=== PATIENT | female | born 1975 | race Caucasian/White ===

== ENCOUNTER 2024-04-20 13:56 | Outpatient (AMB) | payer OTHER, SELFPAY ==
--- NOTE | 2024-04-20 11:24 | A.OFFPC_ITS ---
Intake Visit Reasons: npv, uti Intake Note: New patient visit. UTI sxs Allergies codeine Allergy (Unknown, Verified 04/20/24 16:25) chest tightness metoclopramide [From Reglan] Allergy (Unknown, Verified 04/20/24 16:25) psychotic reaction morphine Allergy (Unknown, Verified 04/20/24 16:25) profuse vomiting Medication List - Last Reconciled 04/20/24 by Carole Castillo PA-C Tobacco use date assessed: 04/20/24 Dental Screening Dental Screen Date: 04/20/24 Did you have a dental visit in the last 12 months?: Yes Did you have a dental problem in the last 6 months where you did not have access to dental care?: No Was dental information given to patient?: Patient has dentist HPI npv, uti HPI Details Patient is a 48-year-old female who presents today to [facility]. She is transferring from [facility]. She tells me today that she would like her hormones tested because she thinks that she is menopausal. She states that she would not know because in her 20s she had a hysterectomy. She states that she has had an increase in anxiety, feeling like she has a hard time with her weight, she reports that all of her joints and muscles are just achy on and off. She is not sleeping well at night and also attributes this to being menopausal. She wonders if his because of her anxiety. She does not want to go on any medications. She has had some increase in life stressors recently but feels like they are under control so she does not know why she is having all this stress. She states that she wants everything checked and that she would consider seeing functional medicine for her hormones. She is leaving to [place] in a few days and requests a prescription for lorazepam. She gets 1 prescription for 30 tablets a year to use as needed. 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 1. Little interest or pleasure in doing things: not at all 2. Feeling down, depressed, or hopeless: not at all 3. Trouble falling or staying asleep, or sleeping too much: nearly every day 4. Feeling tired or having little energy: nearly every day 5. Poor appetite or overeating: nearly every day 6. Feeling bad about yourself - or that you are a failure or have let yourself or your family down: not at all 7. Trouble concentrating on things, such as reading the newspaper or watching television: nearly every day 8. Moving or speaking so slowly that other people could have noticed. Or the opposite - being so fidgety or restless that you have been moving around a lot more than usual: not at all 9. Thoughts that you would be better off or of hurting yourself in some way: not at all Total score: 12 Depression Screening Interpretation: Positive Depression Screening Follow-up: Existing condition and In treatment Depression Screening Done: Yes 03954 - PHQ-9 Billing: Yes Source: Developed by Drs. Deni Anderson, Hawa Hudson, Geovani Fong and colleagues, with an educational aminah from [email or web address]. Thrive Questionnaire Date Thrive assessed: 04/20/24 I am a: Patient What is your living situation today?: I have a steady place to live Within the past 12 months, did the food you bought not last and you didn't have the money to get more?: Never true Within the past 12 months, did you worry whether your food would run out before you got money to buy more?: Never true Do you have trouble paying for medicines?: No Do you have trouble getting transportation to medical appointments?: No Do you have trouble paying your heating and electricity bill?: No Do you have trouble taking care of your child, family member or friend?: No Do you have trouble with day-to-day activities such as bathing, preparing meals, shopping, managing finances, etc.?: No Are you currently unemployed and looking for a job?: No Are you interested in more education?: No Please select the resources that you would like help with: Education and None Currently or been in a relationship where the following occur: No concerns reported THRIVE Score: 0 AUDIT C Alcohol Use Questionnaire (AUDIT-C) 1. How often do you have a drink containing alcohol?: 2-3 times a week 2. How many drinks containing alcohol do you have on a typical day when you are drinking?: 3 or 4 3. How often do you have six or more drinks on one occasion?: Less than monthly Total Score: 5 DANA-7 AMB Questionnaire DANA-7 Date DANA - 7 assessed: 04/20/24 Feeling nervous, anxious, or on edge: 3 = Nearly every day Not being able to stop or control worryin = Nearly every day Worrying too much about different things: 3 = Nearly every day Trouble relaxin = Nearly every day Being so restless that it is hard to sit still: 0 = Not at all Becoming easily annoyed or irritable: 3 = Nearly every day Feeling afraid as if something awful might happen: 3 = Nearly every day Total DANA-7 score (0-4 normal; 5-9 mild; 10-14 moderate; 15-21 severe): 18 Source: Developed by Drs. Deni Anderson, Hawa Hudson, Geovani Fong and colleagues, with an educational aminah from [email or web address]. DANA-7 Assessment Billing DANA-7 Assessment Tool: DANA-7 Assessment 99039 Physical exam (Primary Care) Tobacco/Smoking Status: Tobacco use Status Tobacco use date assessed 04/20/24 04/20/24 13:24 Patient Tobacco Use Status Never used Tobacco 04/20/24 13:24 e-Cigarette/Vaping Use Never Used 04/20/24 13:24 PHQ-9: PHQ-9 Score PHQ-9: Total score 12 04/20/24 16:21 Depression Screening Interpretation: Positive Depression Screening Follow-up: Existing condition and In treatment Thrive Assessment: Date of Thrive Assessment Date Thrive assessed 04/20/24 04/20/24 13:24 Currently or been in a relationship where the following occur: No concerns reported Telehealth Telehealth Telehealth Platform: Telephone Location of provider rendering services: practice address Location of patient: address on file Patient Identification confirmed using: Name, : Yes Telehealth method: voice only Patient verbally consented to treatment: Yes Patient verbally consented to billing insurance company: Yes Patient informed of any privacy concerns related to visit: Yes Assessment and Plan Assessment & Plan (1) Generalized anxiety disorder with panic attacks: Code(s): F41.1 - Generalized anxiety disorder; F41.0 - Panic disorder [episodic paroxysmal anxiety] Plan: I will refill the lorazepam today. Discussed risks and benefits and adverse effects of this medication including risk of addiction, dependence, sedation. Advised to avoid drinking or driving while taking this medication. Labs ordered today. We will follow up pending test results. (2) Hot flashes: Code(s): R23.2 - Flushing Plan: Advised to follow up with nurse obgyn. Labs ordered. (3) Insomnia: Code(s): G47.00 - Insomnia, unspecified Plan: As above. We will follow up pending test results. Advised to make an appointment for a physical exam. (4) S/P hysterectomy: Code(s): Z90.710 - Acquired absence of both cervix and uterus (5) Polyarthralgia: Code(s): M25.50 - Pain in unspecified joint Plan: Arthritis labs ordered. We will follow up pending test results. I have encouraged to follow up for a physical. Orders: Orders Comprehensive [place]. Panel Fast Today F41.0 - Panic disorder [episodic paroxysmal anxiety], F41.1 - Generalized anxiety disorder, G47.00 - Insomnia, unspecified, M25.50 - Pain in unspecified joint, R23.2 - Flushing, Z90.710 - Acquired absence of both cervix and uterus TSH reflex Free T4 Today F41.0 - Panic disorder [episodic paroxysmal anxiety], F41.1 - Generalized anxiety disorder, G47.00 - Insomnia, unspecified, M25.50 - Pain in unspecified joint, R23.2 - Flushing, Z90.710 - Acquired absence of both cervix and uterus Testosterone, Free/Total Today F41.0 - Panic disorder [episodic paroxysmal anxiety], F41.1 - Generalized anxiety disorder, G47.00 - Insomnia, unspecified, M25.50 - Pain in unspecified joint, R23.2 - Flushing, Z90.710 - Acquired absence of both cervix and uterus Lutenizing Hormone Today F41.0 - Panic disorder [episodic paroxysmal anxiety], F41.1 - Generalized anxiety disorder, G47.00 - Insomnia, unspecified, M25.50 - Pain in unspecified joint, R23.2 - Flushing, Z90.710 - Acquired absence of both cervix and uterus Rheumatoid Factor Today F41.0 - Panic disorder [episodic paroxysmal anxiety], F41.1 - Generalized anxiety disorder, G47.00 - Insomnia, unspecified, M25.50 - Pain in unspecified joint, R23.2 - [place]ushing Vitamin B12 and Folate Today F41.0 - Panic disorder [episodic paroxysmal anxiety], F41.1 - Generalized anxiety disorder, G47.00 - Insomnia, unspecified, M25.50 - Pain in unspecified joint, R23.2 - Flushing Magnesium Today F41.0 - Panic disorder [episodic paroxysmal anxiety], F41.1 - Generalized anxiety disorder, G47.00 - Insomnia, unspecified, M25.50 - Pain in unspecified joint, R23.2 - Flushing Erythrocyte Sedimentation Rate Today F41.0 - Panic disorder [episodic paroxysmal anxiety], F41.1 - Generalized anxiety disorder, G47.00 - Insomnia, unspecified, M25.50 - Pain in unspecified joint, R23.2 - Flushing Complete Blood Count Auto Diff Today F41.0 - Panic disorder [episodic paroxysmal anxiety], F41.1 - Generalized anxiety disorder, G47.00 - Insomnia, unspecified, M25.50 - Pain in unspecified joint, R23.2 - Flushing, Z90.710 - Acquired absence of both cervix and uterus Lipid Panel Today F41.0 - Panic disorder [episodic paroxysmal anxiety], F41.1 - Generalized anxiety disorder, G47.00 - Insomnia, unspecified, M25.50 - Pain in unspecified joint, R23.2 - Flushing, Z90.710 - Acquired absence of both cervix and uterus Estrad Free (Tot Ultra + Free) Today F41.0 - Panic disorder [episodic paroxysmal anxiety], F41.1 - Generalized anxiety disorder, G47.00 - Insomnia, unspecified, M25.50 - Pain in unspecified joint, R23.2 - Flushing, Z90.710 - Acquired absence of both cervix and uterus Follicle Stimulating Hormone Today F41.0 - Panic disorder [episodic paroxysmal anxiety], F41.1 - Generalized anxiety disorder, G47.00 - Insomnia, unspecified, M25.50 - Pain in unspecified joint, R23.2 - Flushing, Z90.710 - Acquired absence of both cervix and uterus IRON PROFILE Today F41.0 - Panic disorder [episodic paroxysmal anxiety], F41.1 - Generalized anxiety disorder, G47.00 - Insomnia, unspecified, M25.50 - Pain in unspecified joint, R23.2 - Flushing Ferritin Today F41.0 - Panic disorder [episodic paroxysmal anxiety], F41.1 - Generalized anxiety disorder, G47.00 - Insomnia, unspecified, M25.50 - Pain in unspecified joint, R23.2 - Flushing JAZMÍN Reflex Titer and Pattern Today F41.0 - Panic disorder [episodic paroxysmal anxiety], F41.1 - Generalized anxiety disorder, G47.00 - Insomnia, unspecified, M25.50 - Pain in unspecified joint, R23.2 - Flushing Lyme IgG/IgM w/reflex to WB Today F41.0 - Panic disorder [episodic paroxysmal anxiety], F41.1 - Generalized anxiety disorder, G47.00 - Insomnia, unspecified, M25.50 - Pain in unspecified joint, R23.2 - Flushing Medications: New lorazepam 0.5 mg PO DAILY 30 days PRN 30 tabs 0RF anxiety Discontinued nitrofurantoin monohyd/m-cryst 100 mg (Macrobid) must administer with a meal/food Discontinued Reason: Patient no longer taking 100 mg PO Q12H 7 days 14 caps 0RF phenazopyridine (Pyridium) Discontinued Reason: Patient no longer taking 100 mg PO TID 10 days PRN 30 tabs 0RF pain ondansetron Discontinued Reason: Patient no longer taking 4 mg PO Q8H 10 days PRN 30 tabs 0RF nausea and vomiting Coding Level of Care Code Est Pt Level 3 (67652) Complex EM visit Add On G2211 Diagnoses Generalized anxiety disorder with panic attacks F41.1; F41.0 Hot flashes R23.2 Insomnia G47.00 S/P hysterectomy Z90.710 Polyarthralgia M25.50 Additional Codes DANA-7 Assessment Billing - DANA-7 Assessment Tool: DANA-7 Assessment 07103 ([id number]) Time Spent (min) 22
== END 2024-04-20 16:27 | disposition home or self-care (01) ==
LOC: HO.HMGFM 13:56
PROVIDERS: PCP Physician Assistant; Visit Provider Physician Assistant
DX: F41.1 Generalized anxiety disorder (principal); F41.0 Panic disorder [episodic paroxysmal anxiety]; R23.2 Flushing; G47.00 Insomnia, unspecified; Z90.710 Acquired absence of both cervix and uterus; M25.50 Pain in unspecified joint
CPT/HCPCS: 96127; 99213

== ENCOUNTER 2024-05-13 10:37 | Outpatient (REF) | payer OTHER, SELFPAY ==
[2024-05-13 13:28] LABS: MANUAL DIFF FLAG NO
[2024-05-13 13:34] LABS: Basophils Percent Auto 0.3 % (0-2); Eosinophils Absolute Auto 0.2 X10*3/uL (0.0-0.4); Eosinophils Percent Auto 2.8 % (0-4); Hematocrit 39.7 % (37.0-47.0); Hemoglobin 13.8 g/dl (12.0-16.0); Imm Gran Abs Auto 0.03 X10*3/uL (0.00-0.03); Imm Gran Pct Auto 0.5 % (0.0-0.4); Lymphocytes Absolute Auto 1.9 X10*3/uL (1.2-4.9); Lymphocytes Percent Auto 31.7 % (20-40); Mean Corpuscular HGB Conc 34.8 g/dl (31.0-35.0); Mean Corpuscular Hemoglobin 32.3 pg (27.0-33.0); Monocytes Absolute Auto 0.5 X10*3/uL (0.1-1.2); Monocytes Percent Auto 8.5 % (2-11); Neutrophils Absolute Auto 3.4 x10*3/uL (2.0-8.3); Neutrophils Percent Auto 56.2 % (45-73); Platelet Count 323 X10*3/uL (160-400); Red Blood Count 4.27 X10*6/uL (4.20-5.50); Red Cell Distribution Width 12.4 % (11.0-16.0)
[2024-05-13 14:09] LABS: Alanine Aminotransferase 23 U/L (0-31); Albumin Level 4.5 g/dL (3.5-5.0); Alkaline Phosphatase 37 U/L (39-117); Anion Gap 11 (12-20); Aspartate Amino Transferase 20 U/L (5-31); Bilirubin Total 0.6 mg/dL (0.0-1.0); Blood Urea Nitrogen 11 mg/dL (9-16); Calcium 8.9 mg/dL (8.4-10.2); Carbon Dioxide 25 mmol/L (22-29); Chloride 104 mmol/L (96-108); Cholesterol 219 mg/dL (<200); Estimated Glomerular Filt Rate > 60; Glucose Fasting 83 mg/dL (60-99); HDL Cholesterol 59 mg/dL (>40); Iron 192 mcg/dL (30-160); LDL Cholesterol Calculated 149 mg/dL (<100); Magnesium 2.2 mg/dL (1.6-2.6); Percent Iron Saturation 66 % (15-50); Potassium 3.5 mmol/L (3.3-5.1); Sodium 136 mmol/L (135-145); Total Iron Binding Capacity 289 mcg/dL (228-428); Total Protein 7.4 g/dL (6.5-8.0); Triglycerides 59 mg/dL (<150); Unsaturated Iron Binding 97 ug/dL
[2024-05-13 14:25] LABS: Erythrocyte Sedimentation Rate 5 MM/HR (0-20)
[2024-05-13 14:34] LABS: Rheumatoid Factor < 13.0 IU/mL (<15.0)
[2024-05-13 14:36] LABS: Ferritin 148 ng/mL (10-250); TSH reflex Free T4 0.38 uIU/mL (0.32-4.0)
[2024-05-13 14:46] LABS: Vitamin B12 > 2000 pg/mL (200-900)
[2024-05-16 05:48] LABS: Follicle Stimulating Hormone 76.3 mIU/mL; Lutenizing Hormone 50.9 mIU/mL
[2024-05-17 12:09] LABS: Anti Nuclear Antibody Screen NEGATIVE (NEGATIVE)
[2024-05-17 18:03] LABS: Lyme Abs Screen <0.90 index
[2024-05-20 12:13] LABS: Testosterone, Free 0.8 pg/mL (0.1-6.4); Testosterone, Total 11 ng/dL (2-45)
[2024-05-27 04:33] LABS: Estradiol Free 0.76 pg/mL; Estradiol, Ultrasensitive 42 pg/mL
== END 2024-05-13 10:38 | disposition home or self-care (01) ==
LOC: HO.HMGCLDS 10:37
PROVIDERS: PCP Physician Assistant; Visit Provider Physician Assistant
DX: F41.1 Generalized anxiety disorder (principal); F41.0 Panic disorder [episodic paroxysmal anxiety]; R23.2 Flushing; G47.00 Insomnia, unspecified; Z90.710 Acquired absence of both cervix and uterus; M25.50 Pain in unspecified joint
CPT/HCPCS: 36415; 80053; 80061; 82607; 82670; 82681; 82728; 82746; 83001; 83002; 83540; 83735; 84402; 84403; 84443; 85025; 85652; 86038; 86431; 86617; 86618

== ENCOUNTER 2024-06-04 11:21 | Outpatient (REF) | payer OTHER, SELFPAY ==
[2024-06-04 13:08] LABS: MANUAL DIFF FLAG NO
[2024-06-04 13:09] LABS: Basophils Percent Auto 0.4 % (0-2); Eosinophils Absolute Auto 0.2 X10*3/uL (0.0-0.4); Eosinophils Percent Auto 3.2 % (0-4); Hematocrit 40.8 % (37.0-47.0); Hemoglobin 13.4 g/dl (12.0-16.0); Imm Gran Abs Auto 0.02 X10*3/uL (0.00-0.03); Imm Gran Pct Auto 0.3 % (0.0-0.4); Lymphocytes Absolute Auto 1.9 X10*3/uL (1.2-4.9); Lymphocytes Percent Auto 27.4 % (20-40); Mean Corpuscular HGB Conc 32.8 g/dl (31.0-35.0); Mean Corpuscular Hemoglobin 31.5 pg (27.0-33.0); Mean Corpuscular Volume 95.8 fL (80.0-98.0); Mean Platelet Volume 9.1 fL (9.4-12.3); Monocytes Absolute Auto 0.4 X10*3/uL (0.1-1.2); Monocytes Percent Auto 6.1 % (2-11); Neutrophils Absolute Auto 4.3 x10*3/uL (2.0-8.3); Neutrophils Percent Auto 62.6 % (45-73); Platelet Count 270 X10*3/uL (160-400); Red Blood Count 4.26 X10*6/uL (4.20-5.50); Red Cell Distribution Width 13.2 % (11.0-16.0); White Blood Count 6.9 X10*3/uL (4.8-10.8)
[2024-06-04 13:44] LABS: Alanine Aminotransferase 16 U/L (0-31); Alkaline Phosphatase 35 U/L (39-117); Anion Gap 12 (12-20); Aspartate Amino Transferase 12 U/L (5-31); Bilirubin Direct 0.1 mg/dL (0.0-0.5); Bilirubin Total 0.3 mg/dL (0.0-1.0); Blood Urea Nitrogen 7 mg/dL (9-16); Carbon Dioxide 26 mmol/L (22-29); Chloride 107 mmol/L (96-108); Estimated Glomerular Filt Rate > 60; Glucose Random 95 mg/dL (60-115); Iron 69 mcg/dL (30-160); Percent Iron Saturation 29 % (15-50); Potassium 4.8 mmol/L (3.3-5.1); Sodium 140 mmol/L (135-145); Total Iron Binding Capacity 237 mcg/dL (228-428); Total Protein 6.5 g/dL (6.5-8.0); Unsaturated Iron Binding 168 ug/dL
[2024-06-04 13:58] LABS: Ferritin 58 ng/mL (10-250)
[2024-06-04 14:15] LABS: Vitamin B12 1206 pg/mL (200-900)
[2024-06-06 12:06] LABS: Cholesterol 199 mg/dL (<200); HDL Cholesterol 60 mg/dL (>40); LDL Cholesterol Calculated 123 mg/dL (<100); Triglycerides 80 mg/dL (<150)
[2024-06-16 06:43] LABS: Estradiol Free 6.84 pg/mL; Estradiol, Ultrasensitive 423 pg/mL; Follicle Stimulating Hormone 21.4 mIU/mL; Lutenizing Hormone 39.4 mIU/mL
[2024-06-22 09:23] LABS: Testosterone, Free 1.1 pg/mL (0.1-6.4); Testosterone, Total 16 ng/dL (2-45)
== END 2024-06-04 11:22 | disposition home or self-care (01) ==
LOC: HO.HMGCLDS 11:21
PROVIDERS: PCP Physician Assistant; Visit Provider Physician Assistant
DX: E83.19 Other disorders of iron metabolism (principal); Z78.0 Asymptomatic menopausal state; R23.2 Flushing; R79.89 Other specified abnormal findings of blood chemistry
CPT/HCPCS: 36415; 80048; 80061; 80076; 81256; 82607; 82670; 82681; 82728; 82746; 83001; 83002; 83540; 84402; 84403; 85025

== ENCOUNTER 2024-06-10 10:36 | Outpatient (REF) | payer OTHER, SELFPAY ==
--- NOTE | ~2024-06-10 | US_ITS ---
EXAMINATION: US ABDOMEN COMPLETE CLINICAL INFORMATION: Other disorders of iron metabolism. Elevated LFTs. COMPARISON: None available. TECHNIQUE: Real-time grayscale and color Doppler imaging of the abdominal viscera. FINDINGS: PANCREAS: Normal. ABDOMINAL AORTA: The proximal, mid, and distal segments are normal in caliber. INFERIOR VENA CAVA: Visualized portions are normal. LIVER: Normal. The liver is normal in size. The liver contour is normal. Parenchymal echogenicity is normal. No focal hepatic lesion. There is no intrahepatic biliary duct dilatation seen. GALLBLADDER: Surgically absent. COMMON BILE DUCT: Normal in caliber measuring 0.24 cm in diameter. RIGHT KIDNEY: Normal. No hydronephrosis. No renal calculi or focal parenchymal lesions. The kidney measures 11.4 cm in maximum dimension. LEFT KIDNEY: There is a hyperechoic oval 0.5 x 0.6 0.5 cm mass consistent with an angiomyolipoma. No hydronephrosis or renal calculi. The kidney measures 12.2 cm in maximum dimension. SPLEEN: Normal. The spleen measures 8.9 cm in maximum dimension. FREE FLUID: None. US/US abdomen complete IMPRESSION: 1. Normal liver echogenicity, size, and appearance. No focal lesions. No biliary dilatation. 2. Cholecystectomy. 3. Hyperechoic 0.5 x 0.6 x 0.5 cm oval mass in the superior pole left kidney consistent with an angiomyolipoma. Kidneys otherwise normal. 4. Remainder the examination is normal. Electronically signed by: Eugene Hope MD 07/01/2024 03:34 PM EDT
== END 2024-06-10 10:37 | disposition home or self-care (01) ==
LOC: HO.HMGCX 10:36
PROVIDERS: PCP Physician Assistant; Visit Provider Physician Assistant
DX: E83.19 Other disorders of iron metabolism (principal); R79.89 Other specified abnormal findings of blood chemistry; Z78.0 Asymptomatic menopausal state
CPT/HCPCS: 76700

== ENCOUNTER → 2024-06-10 10:37 | Outpatient (BNV) | payer OTHER, SELFPAY | PROVIDERS: PCP Physician Assistant; Visit Provider Radiology Diagnostic Radiology | DX: R74.01 Elevation of levels of liver transaminase levels (principal) | CPT/HCPCS: 76700 ==

== ENCOUNTER 2024-06-24 08:47 | Outpatient (REF) | payer OTHER, SELFPAY ==
--- NOTE | ~2024-06-24 | MM_ITS ---
EXAMINATION: BONE DENSITOMETRY CLINICAL INDICATION: Menopause. COMPARISON: This is the patient's baseline examination. TECHNIQUE: Using a [employer] DXA System (software version: 13.1) manufactured by [employer], dual-energy x-ray absorptiometry was performed of the lumbar spine and left hip. The images are of good technical quality. Summary results are attached. FINDINGS: LEFT FEMUR, NECK: BMD 1.000 g/cm2, Z-score 0.6, T-score -0.3, normal. LEFT FEMUR, TOTAL: BMD 0.989 g/cm2, Z-score 0.4, T-score -0.1, normal. AP SPINE L1-L4: BMD 1.127 g/cm2, Z-score 0.0, T-score -0.4, normal. IDENTIFIED RISK FACTORS: Early menopause, hysterectomy, history of fracture (adult), secondary osteoporosis. HISTORY OF FRACTURE: Other. MEDICATIONS: Vitamin D, ERT/SERMS. MM/XR DEXA axial skeleton IMPRESSION: 1. DIAGNOSIS: Normal bone density based on the lowest T-score value of -0.4 in the lumbar spine applying World Health Organization criteria. 2. 10-YEAR FRACTURE RISK PREDICTION, FRAX: According to the guidelines, FRAX calculation should only be performed on patients in the osteopenia bone density category. Therefore, FRAX was not performed on this patient. 3. Treatment Recommendations: NOF guidelines recommend consideration for treatment in postmenopausal women and men age 50 and older presenting with the following: -A hip or vertebral (clinical or morphometric) fracture. -T-score less than or equal to -2.5 at the femoral neck or spine after appropriate evaluation to exclude secondary causes. -Low bone mass at the hip or spine and a 10-year fracture probability by FRAX of greater than or equal to 3% for hip fracture or greater than or equal to 20% for major osteoporotic fracture based on the [place] adapted WHO algorithm. 4. Other Recommendations: All treatment decisions require clinical judgment and consideration of individual patient factors, including patient preferences, comorbidities, previous drug use, risk factors not captured in the FRAX model (e.g. frailty, falls, vitamin D deficiency, increased bone turnover, interval significant decline in bone density) and possible under or overestimation of fracture risk by FRAX. FUTURE SCAN RECOMMENDATION: People with diagnosed cases of osteoporosis or at high risk for fracture should have regular bone mineral density tests. For patients eligible for Medicare, routine testing is allowed once every 2 years. The testing frequency can be increased to one year for patients who have rapidly progressing disease, those who are receiving or discontinuing medical therapy to restore bone mass, or have additional risk factors. Electronically signed by: Yaquelin Lind MD 06/27/2024 08:35 AM EDT RP
== END 2024-06-24 08:48 | disposition home or self-care (01) ==
LOC: HO.MAMMO 08:47
PROVIDERS: PCP Physician Assistant; Visit Provider Physician Assistant
DX: Z13.820 Encounter for screening for osteoporosis (principal); Z78.0 Asymptomatic menopausal state; E83.19 Other disorders of iron metabolism
CPT/HCPCS: 77080

== ENCOUNTER 2024-08-10 08:58 | Outpatient (AMB) | payer OTHER, SELFPAY ==
--- NOTE | 2024-06-07 10:08 | A.OFFPC_ITS ---
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 Allergies codeine Allergy (Unknown, Verified 04/20/24 16:25) chest tightness metoclopramide [From Reglan] Allergy (Unknown, Verified 04/20/24 16:25) psychotic reaction morphine Allergy (Unknown, Verified 04/20/24 16:25) profuse vomiting Tobacco use date assessed: 04/20/24 Dental Screening Dental Screen Date: 04/20/24 PFSH Medical History (Updated 05/27/24 @ 13:13 by Carole Castillo PA-C) Nipple discharge Depression Breast atypical lobular hyperplasia Anxiety Anemia Surgical History (Updated 04/20/24 @ 16:23 by Tiffanie Freed CMA) H/O: hysterectomy S/P hysterectomy Family History (Updated 04/20/24 @ 16:27 by Tiffanie Freed CMA) Maternal Grandmother Breast cancer Lung cancer Social History Housing: House Patient Tobacco Use Status: Never used Tobacco e-Cigarette/Vaping Use: Never Used Second Hand Smoke Exposure: Yes (past) service: Yes 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 Deni Anderson, aHwa Hudson, Geovani Fong and colleagues, with an educational aminah from [employer]. Physical exam (Primary Care) Tobacco/Smoking Status: Tobacco use Status Tobacco use date assessed 04/20/24 04/20/24 13:24 Patient Tobacco Use Status Never used Tobacco 04/20/24 13:24 e-Cigarette/Vaping Use Never Used 04/20/24 13:24 Thrive Assessment: Date of Thrive Assessment Date Thrive assessed 04/20/24 04/20/24 13:24 Coding
--- NOTE | 2024-08-10 09:03 | A.OFFPC_ITS ---
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 Feeder Required: No Allergies codeine Allergy (Unknown, Verified 08/10/24 09:05) chest tightness metoclopramide [From Reglan] Allergy (Unknown, Verified 08/10/24 09:05) psychotic reaction morphine Allergy (Unknown, Verified 08/10/24 09:05) profuse vomiting Medication List - Last Reconciled 08/10/24 by Carole Castillo PA-C albuterol sulfate 90 mcg/actuation 2 puffs inhalation Q4-6H PRN cholecalciferol (vitamin D3) 125 mcg PO DAILY estradiol 0.01%(0.1mg/gram) 1 g vaginal QWEEK lactobacillus combo no.11 (Probiotic) 1 cap PO DAILY lorazepam 0.5 mg PO DAILY PRN 30 days norgestimate-ethinyl estradiol 0.18/0.215/0.25 mg-35 mcg (28) 1 tab PO DAILY progesterone micronized 200 mg PO BEDTIME valacyclovir (Valtrex) 500 mg PO DAILY Tobacco use date assessed: 08/10/24 Dental Screening Dental Screen Date: 04/20/24 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 She is overall healthy and is very conscious which but she eats, stays well hydrated and remains very active. 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 CV: Blood pressure today in the office is 90/72. Asymptomatic with this. Her heart rate is 85. She does complain today of palpitations. She states that she is currently being treated for the menopause symptoms but is experiencing palpitations that happen regularly. She states it will last a short time and resolve on its own. She does not usually feel dizzy with this. No chest pain. She does sometimes feel slightly short of breath with this. She has had these in the past but this has been more persistent. heme/onc: Dr. Luisa Tobin for her breast management. Has had a bilateral mastectomy and hysterectomy. -recently had labs which did show an agnes vated B12 and iron level. The iron level has since resolved in the B12 is trending down. She did get labs after she was sick traveling from [place]. Endo: following with [facility] for hormone replacement. Feeling significantly better since starting estradiol. States that her anxiety has gotten a lot better along with her skin and fatigue. Musculoskeletal: Right lower leg pain and swelling x years. It seems like it will flare-up the longer she stands on her legs. She does wear compression stockings at work. States that there is a noticeable difference between her right and left lower leg. The swelling and bulging is in the back of her calf and it is worse with moving around after the day. She does notice some increased varicose veins and spider veins. There is no erythema and there was no trauma. She does not believe that this is related to a Ayala's cyst. Overdue colonoscopy bone density: [id number] Pharmacy Picking [facility] [facility] [place] q.6 months Follows with Ophthalmology annually [facility] Medical History (Updated 08/10/24 @ 12:26 by Carole Castillo PA-C) Nipple discharge Depression Breast atypical lobular hyperplasia Anxiety Anemia Surgical History H/O bilateral mastectomy H/O: hysterectomy S/P hysterectomy Family History Maternal Grandmother Breast cancer Lung cancer Social History (Updated 08/10/24 @ 09:13 by Tiffanie Freed CMA) Housing: House Alcohol intake: current Patient Tobacco Use Status: Current everyday Tobacco user e-Cigarette/Vaping Use: Never Used Second Hand Smoke Exposure: Yes (past) Use of substances other than those prescribed or required for medical reasons: No service: Yes Current occupational status: employed 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 1. Little interest or pleasure in doing things: not at all 2. Feeling down, depressed, or hopeless: not at all 3. Trouble falling or staying asleep, or sleeping too much: not at all 4. Feeling tired or having little energy: nearly every day 5. Poor appetite or overeating: not at all 6. Feeling bad about yourself - or that you are a failure or have let yourself or your family down: not at all 7. Trouble concentrating on things, such as reading the newspaper or watching television: not at all 8. Moving or speaking so slowly that other people could have noticed. Or the opposite - being so fidgety or restless that you have been moving around a lot more than usual: not at all 9. Thoughts that you would be better off or of hurting yourself in some way: not at all Total score: 3 Depression Screening Interpretation: Negative Depression Screening Done: Yes 22719 - PHQ-9 Billing: Yes Source: Developed by Drs. Deni Anderson, Hawa Hudson, Geovani Fong and colleagues, with an educational aminah from [employer]. Thrive Questionnaire Date Thrive assessed: 08/03/24 I am a: Patient What is your living situation today?: I have a steady place to live Within the past 12 months, did the food you bought not last and you didn't have the money to get more?: Never true Within the past 12 months, did you worry whether your food would run out before you got money to buy more?: Never true Do you have trouble paying for medicines?: No Do you have trouble getting transportation to medical appointments?: No Do you have trouble paying your heating and electricity bill?: No Do you have trouble taking care of your child, family member or friend?: No Do you have trouble with day-to-day activities such as bathing, preparing meals, shopping, managing finances, etc.?: No Are you currently unemployed and looking for a job?: No Are you interested in more education?: Yes Please select the resources that you would like help with: None Currently or been in a relationship where the following occur: No concerns reported THRIVE Score: 0 AUDIT C Alcohol Use Questionnaire (AUDIT-C) 1. How often do you have a drink containing alcohol?: 2-4 times a month 2. How many drinks containing alcohol do you have on a typical day when you are drinking?: 1 or 2 3. How often do you have six or more drinks on one occasion?: Never Total Score: 2 DANA-7 AMB Questionnaire DANA-7 Date DANA - 7 assessed: 04/20/24 Feeling nervous, anxious, or on edge: 0 = Not at all Not being able to stop or control worryin = Not at all Worrying too much about different things: 0 = Not at all Trouble relaxin = Not at all Being so restless that it is hard to sit still: 0 = Not at all Becoming easily annoyed or irritable: 0 = Not at all Feeling afraid as if something awful might happen: 0 = Not at all Total DANA-7 score (0-4 normal; 5-9 mild; 10-14 moderate; 15-21 severe): 0 Source: Developed by Drs. Deni Anderson, Hawa Hudson, Geovani Fong and colleagues, with an educational aminah from [employer]. DANA-7 Assessment Billing DANA-7 Assessment Tool: DANA-7 Assessment 46296 Physical exam (Primary Care) Vital Signs: Last Vital Signs Pulse 85 08/10/24 09:08 BP 90/72 08/10/24 09:08 Pulse Ox 95 08/10/24 09:08 Oxygen Delivery Method Room Air 08/10/24 09:08 BMI result Body Mass Index 20.0 Tobacco/Smoking Status: Tobacco use Status Tobacco use date assessed 08/10/24 08/10/24 09:13 Patient Tobacco Use Status Current everyday Tobacco 08/10/24 09:13 e-Cigarette/Vaping Use Never Used 08/10/24 09:13 PHQ-9: PHQ-9 Score PHQ-9: Total score 3 08/10/24 09:28 Depression Screening Interpretation: Negative Thrive Assessment: Date of Thrive Assessment Date Thrive assessed 08/03/24 08/10/24 09:04 Currently or been in a relationship where the following occur: No concerns reported Const Orientation/consciousness: patient oriented x3 HENMT Ears: hearing grossly normal bilaterally and TM's normal bilaterally General nose exam: No nasal polyps present Face and sinus: Yes sinuses nontender Mouth: Normal oral and palatal mucosa present Eyes Pupils: Equal, round and reactive pupils present EOM: EOMs intact bilaterally Neck Neck: Yes full ROM and Yes no lymphadenopathy Thyroid: Thyroid normal Chest Chest palpation & inspection: normal inspection of the chest Resp Auscultation: clear to auscultation bilaterally Cardio Rate: regular rate Rhythm: regular rhythm Heart sounds: S1 normal heart sound present and S2 normal heart sound present Peripheral pulses: Peripheral pulses 2+ throughout GI Other: Soft, nontender Auscultation: normal bowel sounds Rectal Exam - Female: deferred General: Yes no CVA tenderness Back/Spine/Pelvis Other: Nontender Back: no CVA tenderness Skin General skin exam: no rashes or lesions noted Neuro General: patient oriented x3, gait normal, CN's II-XI intact bilaterally and deep tendon reflexes 2+ bilaterally Cranial nerves: Yes Equal, round and reactive pupils present Motor exam (neuro): 5/5 motor strength present throughout Sensory Exam: double simultaneous stimulation for sensation normal Coordination: [id number] test normal and Romberg test negative Extrem Other: The right lower leg is 35 cm. The left lower leg is 32-1/2 cm. Slight calf tenderness on the right. No overlying erythema. General: Yes normal to inspection and Yes full ROM Psych Affect: normal affect Attitude: cooperative Thought process: Normal thought process present Thought content: Normal thought content present Insight: Good insight present (Psych) Judgement: Good judgement present (Psych) Results Reviewed Results Reviewed: Laboratory Tests 05/13/24 06/04/24 10:42 11:24 WBC 6.9 RBC 4.26 Hgb 13.4 Hct 40.8 Plt Count 270 Sodium 140 Potassium 4.8 D Chloride 107 Carbon Dioxide 26 Anion Gap 12 Creatinine 0.73 Estimated GFR > 60 Random Glucose 95 Iron 69 Ferritin 148 58 Total Bilirubin 0.3 Direct Bilirubin 0.1 AST 12 ALT 16 Alkaline Phosphatase 35 L Total Protein 6.5 Triglycerides 80 Cholesterol 199 LDL Cholesterol, Calc 123 H HDL Cholesterol 60 Vitamin B12 1206 H Folate 17.0 US/US abdomen complete IMPRESSION: 1. Normal liver echogenicity, size, and appearance. No focal lesions. No biliary dilatation. 2. Cholecystectomy. 3. Hyperechoic 0.5 x 0.6 x 0.5 cm oval mass in the superior pole left kidney consistent with an angiomyolipoma. Kidneys otherwise normal. 4. Remainder the examination is normal. Electronically signed by: Eugene Hope MD 07/01/2024 03:34 PM EDT Coding Level of Care Code Est Pt Prev Care 40-64y(20665) Diagnoses Routine general medical examination at a health care facility Z00.00 Pain and swelling of right lower leg M79.661; M79.89 Rosacea L71.9 Palpitations R00.2 Additional Codes PHQ-9 - 58344 - PHQ-9 Billing: Yes ([id number]) DANA-7 Assessment Billing - DANA-7 Assessment Tool: DANA-7 Assessment 72195 ([id number]) Assessment & Plan Assessment & Plan (1) Routine general medical examination at a health care facility: Code(s): Z00.00 - Encounter for general adult medical examination without abnormal findings Plan: Health maintenance reviewed. Labs reviewed. Labs reordered to monitor. (2) Pain and swelling of right lower leg: Code(s): M79.661 - Pain in right lower leg; M79.89 - Other specified soft tissue disorders Category: Medical Plan: Ultrasound leg ordered. There is a discrepancy by 2-1/2 cm. (3) Rosacea: Code(s): L71.9 - Rosacea, unspecified Category: Medical Plan: We will try Metrogel (4) Palpitations: Code(s): R00.2 - Palpitations Category: Medical Plan: Holter and echo ordered. We will follow up pending test results. Labs ordered today. Plan Referral to derm Referral to GI for colonoscopy Orders: Orders US venous duplex LE RT Today M79.661 - Pain in right lower leg, M79.89 - Other specified soft tissue disorders ECG holter monitor 24 hour Today R00.2 - Palpitations, R06.02 - Shortness of breath CA echo transthoracic complete Today R00.2 - Palpitations, R06.02 - Shortness of breath Referrals Gastroenterology Referral Z12.11 - Encounter for screening for malignant neoplasm of colon ARTIFICIAL BREAST FABRICATOR Referral Z01.419 - Encounter for gynecological examination (general) (routine) without abnormal findings Dermatology Referral L71.9 - Rosacea, unspecified Medications: New metronidazole 0.75% (MetroCream) 1 appl topical DAILY 45 grams 2RF
[2024-08-10 09:08] VITALS: BP 90/72; PULSE 85; O2SAT 95
== END 2024-08-10 09:58 | disposition home or self-care (01) ==
PROVIDERS: PCP Physician Assistant; Visit Provider Physician Assistant
DX: Z00.00 Encounter for general adult medical examination without abnormal findings (principal); M79.661 Pain in right lower leg; M79.89 Other specified soft tissue disorders; L71.9 Rosacea, unspecified; R00.2 Palpitations

== ENCOUNTER → 2024-08-10 08:58 | Outpatient (BNVA) | payer OTHER, SELFPAY | PROVIDERS: PCP Physician Assistant; Visit Provider Physician Assistant | DX: Z00.01 Encounter for general adult medical examination with abnormal findings (principal); M79.661 Pain in right lower leg; M79.89 Other specified soft tissue disorders; L71.9 Rosacea, unspecified; R00.2 Palpitations | CPT/HCPCS: 96127 ==

== ENCOUNTER → 2024-09-09 10:04 | Outpatient (REF) | payer OTHER, SELFPAY ==
--- NOTE | ~2024-09-09 | US_ITS ---
CLINICAL HISTORY: M79.661 - Pain in right lower leg Right lower extremity venous duplex ultrasound Study was performed using color and spectral waveform analysis. Comparison: None Findings: Visualized deep veins are fully compressible with normal flow and augmentation. No popliteal cyst. No significant adenopathy. Impression: Right lower extremity venous duplex ultrasound negative for DVT This document has been electronically signed by: Iker Franklin MD on 09/13/2024 18:20:10
--- OUTSIDE RECORDS SUMMARY | 2024-09-09 10:09 | XMS_ITS | Continuity of Care Document ---
Author Name [facility] Organization [facility] Care Team Providers Care Clinical Mental Health Counselor Name Role Phone [facility] Unavailable Unavailable Encounters Combined list of: 1) Encounters from Department of Veterans Affairs facilities going back up to thelast 18 months. 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 Location Location Details Encounter Type Encounter Number Reason For Visit Attending Provider ADM Date DC Date Status Disposition Source [place] [facility] En[facility] [id number] 10/20 [place] [facility] Social History Combined list of available smoking, tobacco, and other social history from Department of Defense and Veterans Affairs facilities. Social History Type Response Date Comment Sourc e This section is an empty social history section. DoD
--- OUTSIDE RECORDS SUMMARY | 2024-09-09 10:09 | XMS_ITS ---
Author Name [facility] Organization [facility] [place] Address [address] [place] [address] Support Name Relationship Address Phone WILLIAM PORTER Next of Kin 9 JOSH VAZQUEZ WILLIAM PORTER Emergency Contact 9 JOSH CROWELL Selected Encounter This section includes the information on record at [place] for the Encounter. Date/Time Encounter Type Encounter Description Reason Pro vider Source Oct 20, 2023 03:48 PM Outpatient Encounter [facility] JUSTICE [facility] IHE Encounter Template Text not used by VA Encounter Notes: All associated encounter notes This section contains the clinical notes associated to the Encounter. 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 She completed basic training at [place], [place]. [place] was trained in engineering and basic electronic skills. Her first duty station was [facility] in [place]. She eventually got a hardship transfer to [place] due to family issue including her brother running away from home repeatedly. 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 Ms. Ferraro received an honorable discharge. SOCIAL HISTORY: Ms. Ferraro was born and raised in [place]. She has a younger sister and a younger brother who due to issues related to addiction. [place] described her father as an abusive alcoholic. Her mother also had addiction issues, primarily opioids. Her mother had her at age 17 and her father was 10 years older with 2 other children. Ms. Ferraro's parents when she was in high school. Her father then moved to [place] with her brother. Ms. Ferraro joined the right after high school. Ms. Ferraro notes being close to her sister who is now a statement processor. They continue to deal with difficult issues with her mother who still struggles with mental health problems. Ms. Ferraro met her while in the . He was in the longer than she was and they moved to [place] and then [place] due to him being transferred. They eventually transferred to [facility]. Her was an [employer] customer service security officer and is now a statement processor. Ms. 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 Ms. Ferraro and her have two daughters ages 24 and 21. Both are doing well. SUBSTANCE ABUSE HISTORY: Ms. Ferraro describes social use of alcohol. On the day of her arrest, she was emotionally distraught after meeting a close friend for divya. She had been discussing issues she was having with her mother as well as trauma she suffered while in the . She has not used alcohol since her arrest. MEDICAL HISTORY: No current issues disclosed. DIAGNOSTIC PRESENTATION: Ms. Ferraro is interviewed for 60 minutes by phone. She presents with depressed and anxious mood. She denies any suicidal or homicidal ideation. She reports poor sleep and significant weight loss in the recent past. There is no evidence of any formal thought disorder. Ms. Ferraro does describe significant trauma in the that she has never disclosed before. She is quite tearful when relating this. Memory and concentration are intact. Insight and judgment appear good. DIAGNOSTIC IMPRESSIONS: Adjustment Disorder with Anxiety and Depression; Rule Out PTSD; Rule Out Alcohol Use Disorder TREATMENT RECOMMENDATIONS: * Ms. Ferraro is agreeable to individual therapy at the [facility] ____ ZE [place] Date: October 12, 2023 ZE (JOSH # [id number]) [facility] Control Technician /veronica/ EZ MATIAS AUTOMOTIVE PARTS COORDINATOR Signed: 10/20/2023 15:48 KLEBER العلي [facility]
--- OUTSIDE RECORDS SUMMARY | 2024-09-09 10:09 | XMS_ITS ---
Author Name [facility] Organization Unknown History of Medication Use Medication Directions Dispensed Refills Start Date End Date [facility] betamethasone acetate-betamethason e sodium phosphate (CELESTONE) injection 12 mg 12 mg, Intra-articular, Once PRN Procedure, Starting on Thu08/14/23 at 1000, For 1 dose 08/16/2023 completed Problems Problem Status Onset Date Problem Type Date of Resolution Source Sacroiliac joint pain active EncounterDiagnosis Act [facility] Spondylosis of lumbosacral region without myelopathy or radiculopathy active EncounterDiagnosisAct [facility] Immunizations Vaccine Date Source Lot Number Status Covid-19 MRNA Vaccine - Pfiz er 12+ (Purple Cap) 11/07/2020 [facility] [id number] completed Covid-19 MRNA Vaccine - Pfiz er 12+ (Purple Cap) 10/13/2020 [facility] [id number] completed
== END ==
LOC: HO.CARD 10:04
PROVIDERS: PCP Physician Assistant; Visit Provider Physician Assistant
DX: R00.2 Palpitations (principal); R06.02 Shortness of breath; M79.661 Pain in right lower leg; M79.89 Other specified soft tissue disorders
CPT/HCPCS: 93225; 93971

== ENCOUNTER → 2024-09-09 10:21 | Outpatient (BNV) | payer OTHER, SELFPAY | PROVIDERS: PCP Physician Assistant; Visit Provider Radiology Diagnostic Radiology | DX: M79.661 Pain in right lower leg (principal) | CPT/HCPCS: 93971 ==

== ENCOUNTER 2024-09-16 11:00 | Outpatient (AMB) | payer OTHER, SELFPAY ==
--- NOTE | 2024-09-16 11:02 | A.OFFVIS_ITS ---
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 Can not remember last time she had a pap smear, has no cervix. Trying to get back on track with her health. Chief Of Surgery: Chief Of Surgery Present (Francheska) Accompanied by: Self / Same As Patient Allergies codeine Allergy (Unknown, Verified 09/16/24 11:24) chest tightness metoclopramide [From Reglan] Allergy (Unknown, Verified 09/16/24 11:24) psychotic reaction morphine Allergy (Unknown, Verified 09/16/24 11:24) profuse vomiting Medication List - Last Reconciled 09/16/24 by Rena Mullins CNM albuterol sulfate 90 mcg/actuation 2 puffs inhalation Q4-6H PRN estradiol 0.01%(0.1mg/gram) 1 g vaginal QWEEK lactobacillus combo no.11 (Probiotic) 1 cap PO DAILY lorazepam 0.5 mg PO DAILY PRN 30 days metronidazole 0.75% (MetroCream) 1 appl topical DAILY norgestimate-ethinyl estradiol 0.18/0.215/0.25 mg-35 mcg (28) 1 tab PO DAILY progesterone micronized 200 mg PO BEDTIME valacyclovir (Valtrex) 500 mg PO DAILY HPI 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 She had an extensive history abnormal bleeding and fibroids that were managed with somewhat limited success with various hormonal therapies and she tried everything and eventually decision was made to proceed to hysterectomy. She also had an extensive history of precancerous lesions that needed to be biopsied or surgically evaluated again and again and again with her breasts and eventually she opted for a prophylactic mastectomy. She had her breasts removed and she had implants placed, and she is now having concerns as she feels that things have shifted and she can feel incredible pulling from gravity with her breasts. Additionally she was having lots of issues with hot flashes and brain fog and sleep issues so she sought out endocrinology to discuss hormone replacement therapy and she is on that now and is feeling vast improvement. She feels that she has made best decisions she could with all of these issues though sometimes she wonders if she could have done some other procedure for the bleeding and fibroids that perhaps had not been offered. She has a remote history of HPV when she was young she has a very remote history as well of herpes and when she was going through the challenges of the menopausal symptoms she was getting a lot of flares. She and her never figured out where the herpes came from they have been together for 30 years and are monogamous with each other. But since she has that would the stresses of dealing with the menopausal symptoms and she has gone on prophylactic 500 mg Valtrex per day she has not had an outbreak. She has an oncologist who she has not seen since her mastectomy in 2021 but she has need to follow-up with her, and also she needs to see somebody else for plastic surgery breast reconstruction because she is not happy with the results of her breast implants, she works on her posture but also feels they are too heavy and they are pulling on her chest wall. She is not very concerned about it but for last couple of years she has been aware of a small bump inside her vagina that she palpated that she would like to have checked as well it was checked in the past and deemed to be nothing. [facility] Medical History (Updated 09/16/24 @ 14:56 by Rena Mullins CNM) Nipple discharge Depression Breast atypical lobular hyperplasia Anxiety Anemia Surgical History (Updated 09/16/24 @ 12:24 by Rena Mullins CNM) H/O bilateral mastectomy H/O: hysterectomy S/P hysterectomy Family History Maternal Grandmother Breast cancer Lung cancer Social History (Updated 08/10/24 @ 09:13 by Tiffanie Freed CMA) Housing: House Alcohol intake: current Patient Tobacco Use Status: Current everyday Tobacco user e-Cigarette/Vaping Use: Never Used Second Hand Smoke Exposure: Yes (past) service: Yes Current occupational status: employed 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 Current occupational exposures/hazards: Yes (in Xray everyday) Cognitive needs: No Hearing needs: No Vision needs: No Female Reproductive History Menstrual Age of Menarche: 13 Total pregnancies: 3 Full term: 2 Ab spontaneous: 1 Physical Exam Vital Signs: Last Vital Signs BP 90/66 09/16/24 11:06 BMI result Body Mass Index 20.2 Const General: healthy appearing, comfortable, no acute distress, well developed and alert Nutritional Appearance: average body habitus Orientation/consciousness: patient oriented x3 Limitations: no limitations HEENT Head: Yes normocephalic Neck Neck: Yes normal visual inspection Chest Other: Patient has bilateral breast implants there is visible dimpling at the borders of the breast consistent with implants under the breast tissue. No masses other than the implants possible to feel. Breast/axilla inspection: normal inspection of the axillae Resp Effort & Inspection: normal respiratory effort GI Inspection: Yes normal to inspection, No Abdominal wall edema and No distended Palpation (GI): Soft to palpation and nontender Other: Vagina is pink and moist clear healthy appearing mucosa not atrophic. Vaginal cuff scar is well healed horizontal no masses bulging. There is a small non hardened small swelling at approximately 11:00 o'clock 2-3 cm above vaginal cuff scar consistent with possibly an inclusion cyst. Cervix and uterus are surgically absent. General: Yes bladder normal to palpation External Female Exam: normal external appearance and normal appearance of the urethra Speculum Exam - Vagina: normal appearance of the vagina, normal palpation and normal vaginal discharge Speculum Exam - Cervix: normal appearance of the cervix and normal palpation Bimanual exam- vagina & uterus: normal bimanual exam, normal palpation, bladder normal to palpation, consistency normal and normal palpation Bimanual Exam- Adnexa, other: normal adnexae, no masses, normal and No adnexal tenderness Neuro General: patient oriented x3 Assessment & Plan Assessment & Plan (1) S/P hysterectomy: Comment: Done for treatment of recurrent abnormal bleeding not responsive to hormone therapies. Code(s): Z90.710 - Acquired absence of both cervix and uterus Category: Surgical (2) Cervical cancer screening: Comment: Remote history of positive HPV abnormal Paps. Pap smear of vaginal cuff done 09/16/24... Code(s): Z12.4 - Encounter for screening for malignant neoplasm of cervix Category: Medical (3) H/O bilateral mastectomy: Code(s): Z90.13 - Acquired absence of bilateral breasts and nipples Category: Surgical (4) Breast atypical lobular hyperplasia: Comment: Patient had prophylactic mastectomy 2021, after multiple masses and biopsies-we will be getting follow-up mammography and screening through her oncologist ... Code(s): N60.99 - Unspecified benign mammary dysplasia of unspecified breast Category: Medical (5) Breast implant status: Comment: Patient had bilateral implants placed after her prophylactic mastectomy. She is having issues with them and is not happy currently and she will be seeking consultation Code(s): Z98.82 - Breast implant status Category: Medical (6) Herpes genitalis: Comment: States she has prescription for valacyclovir should she need it, currently extremely rare outbreaks... Code(s): A60.00 - Herpesviral infection of urogenital system, unspecified Category: Medical (7) Perimenopausal symptoms: Comment: Sees sr account executive who prescribes her hormone replacement therapy; says it was cleared with her oncologist... Code(s): N95.1 - Menopausal and female climacteric states Category: Medical (8) Well woman exam with routine gynecological exam: Code(s): Z01.419 - Encounter for gynecological examination (general) (routine) without abnormal findings Category: Medical Plan Discussed all of the issues in HPI including her extensive history as regards her multiple masses and biopsies leading up to the decision to have prophylactic mastectomy. This was done in 2021 and she has implants that she is currently somewhat dissatisfied about and she will be seeking another plastic surgery input regards these. She will also be following up with her oncologist to obtain mammogram and other follow-up as necessary status post her prophylactic mastectomy.. Full exam done and questions about what she feels internally related to her scar and the tiny what feels to be an inclusion cyst anterior to her scar that does not feel swollen inflamed or consequential. Patient was reassured by having visualization of her anatomy, and discussion of findings. I did a Pap smear out of an abundance of caution because of her remote history of positive HPV even though the reason for the hysterectomy was not related to this and Pap smears in the years just prior to the hysterectomy were all normal. Discussed that while we do say come back every year if she is getting all of her healthcare needs addressed by her other providers she may make her own healthcare visit decisions so long as she is getting her healthcare needs addressed. She has seen someone for management of her breasts she is seeing somebody for management of her hormones and she will be seen somebody for plastic surgery discussion and she will be seeing her primary care provider. Pap smear as well as testing for gonorrhea chlamydia trichomoniasis bacterial vaginosis and yeast done today I did offer testing for STIs other than these and she declined. RTC 1 year unless she chooses otherwise. Orders: Orders Bacterial Vaginosis Panel Today Z01.419 - Encounter for gynecological examination (general) (routine) without abnormal findings CT NG by PCR Today Z01.419 - Encounter for gynecological examination (general) (routine) without abnormal findings Pap Smear Today Z01.419 - Encounter for gynecological examination (general) (routine) without abnormal findings Coding Level of Care Code New Pt Prev Care 40-64y([id number]) Diagnoses S/P hysterectomy Z90.710 Cervical cancer screening Z12.4 H/O bilateral mastectomy Z90.13 Breast atypical lobular hyperplasia N60.99 Breast implant status Z98.82 Herpes genitalis A60.00 Perimenopausal symptoms N95.1 Well woman exam with routine gynecological exam Z01.419
[2024-09-16 11:06] VITALS: BP 90/66; BMI 20.2
--- OUTSIDE RECORDS SUMMARY | 2024-09-16 12:50 | XMS_ITS | Continuity of Care Document ---
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 Location Location Details Encounter Type Encounter Number Reason For Visit Attending Provider ADM Date DC Date Status Disposition Source [facility] Outpatient Encounter [id number] 10/20 [facility] [employer] Social History Combined list of available smoking, tobacco, and other social history from Department of Defense and Veterans Affairs facilities. Social History Type Response Date Comment Sourc e This section is an empty social history section. [facility]
== END 2024-09-16 12:13 | disposition home or self-care (01) ==
PROVIDERS: PCP Physician Assistant; Visit Provider Advanced Practice Midwife
DX: Z01.419 Encounter for gynecological examination (general) (routine) without abnormal findings (principal)
CPT/HCPCS: 99386; 99459

== ENCOUNTER 2024-09-16 11:00 | Outpatient (REF) | payer OTHER, SELFPAY ==
[2024-09-17 05:19] LABS: CT PCR NOT DETECTED (Not Detect.); NG PCR NOT DETECTED (Not Detect.)
[2024-09-17 14:45] LABS: Bacterial Vaginosis PCR POSITIVE (Negative); Candida Group PCR NOT DETECTED (Not Detect); Candida glab krusei PCR NOT DETECTED (Not Detect); Trichomonas vaginalis PCR NOT DETECTED (Not Detect)
[2024-09-19 10:22] LABS: HPV 16,18/45 See PAP report
== END 2024-09-16 11:01 | disposition home or self-care (01) ==
LOC: HO.LNP 11:00
PROVIDERS: PCP Physician Assistant; Visit Provider Advanced Practice Midwife
DX: Z01.419 Encounter for gynecological examination (general) (routine) without abnormal findings (principal)
CPT/HCPCS: 81515; 87491; 87591; 87626; 88175

== ENCOUNTER → 2024-09-30 11:32 | Outpatient (REF) | payer OTHER, SELFPAY | LOC: HO.CARD 11:32 | PROVIDERS: PCP Physician Assistant; Visit Provider Physician Assistant | DX: R00.2 Palpitations (principal); R06.02 Shortness of breath | CPT/HCPCS: 93225 ==

== ENCOUNTER → 2024-09-30 11:36 | Outpatient (BNV) | payer OTHER, SELFPAY | PROVIDERS: PCP Physician Assistant; Visit Provider Internal Medicine | DX: I47.10 Supraventricular tachycardia, unspecified (principal) | CPT/HCPCS: 93227 ==